=== PATIENT | female | born 1995 | race American Indian/Alaskan Native ===

== ENCOUNTER 2021-05-03 13:34 | Emergency (ER) | payer SELFPAY ==
[2021-05-03 14:09] VITALS: BP 114/73
--- NOTE | 2021-05-03 14:34 | Emergency Department Report ---
ED General Adult HPI - General Chief complaint: Sore Throat Stated complaint: SWOLLEN LYMPH NODES/INFECTION Time Seen by Provider: 05/03/21 14:13 Source: patient Mode of arrival: Ambulatory Limitations: No Limitations - History of Present Illness Initial comments: 25-year-old -L[place] female patient presents with complaints of sore throat starting yesterday and rash and pain to her new tattoo x2 days. Patient states she has a history of recurrent strep pharyngitis and that her sore throat feels similar. She rates her pain as a 9/10 in severity and states it mildly improved with ibuprofen at home. She denies any chest pain, shortness of breath, cough, or fever/chills/sweats. Patient states she has been applying Aquaphor to her new tattoo and wrapping it and plastic wrap. No known drug allergies per patient. She denies any joint pain, numbness/tingling, or difficulty moving her arm or hand. - Related Data Previous Rx's Medication Instructions Recorded Last Taken Type Fluconazole [Diflucan TAB] 150 mg PO QDAY PRN #1 tablet 05/03/21 Unknown Rx Ibuprofen [Motrin 800 MG tab] 800 mg PO Q8HR PRN #20 tablet 05/03/21 Unknown Rx Triamcinolone Acetonide 15 gm TP TID PRN 7 Days #1 tube 05/03/21 Unknown Rx cephALEXin [Keflex] 500 mg PO Q8HR 10 Days #30 cap 05/03/21 Unknown Rx predniSONE [Deltasone] 20 mg PO BID 3 Days #6 tab 05/03/21 Unknown Rx Allergies Allergy/AdvReac Type Severity Reaction Status Date / Time No Known Allergies Allergy Verified 05/03/21 14:10 ED Review of Systems ROS: Stated complaint: SWOLLEN LYMPH NODES/INFECTION Other details as noted in HPI Constitutional: see HPI Respiratory: see HPI Cardiovascular: as per HPI Skin: as per HPI Neurological: as per HPI ED Past Medical Hx - Past Medical History Previous Medical History?: No - Surgical History Past Surgical History?: No - Medications Home Medications: Home Medications Medication Instructions Recorded Confirmed Last Taken Type Fluconazole [Diflucan TAB] 150 mg PO QDAY PRN #1 tablet 05/03/21 Unknown Rx Ibuprofen [Motrin 800 MG tab] 800 mg PO Q8HR PRN #20 tablet 05/03/21 Unknown Rx Triamcinolone Acetonide 15 gm TP TID PRN 7 Days #1 tube 05/03/21 Unknown Rx cephALEXin [Keflex] 500 mg PO Q8HR 10 Days #30 cap 05/03/21 Unknown Rx predniSONE [Deltasone] 20 mg PO BID 3 Days #6 tab 05/03/21 Unknown Rx ED Physical Exam - General Limitations: No Limitations General appearance: alert, in no apparent distress - Head Head exam: Present: atraumatic, normocephalic - Eye Eye exam: Present: normal appearance. Absent: scleral icterus - Expanded ENT Exam Expanded Mouth exam: Absent: drooling, trismus, muffled voice Throat exam: Positive: tonsillar erythema (Bilateral), tonsillomegaly (Mild bilateral), tonsillar exudate (Bilateral), other (Uvula is mildly swollen and erythematous, uvula is midline). Negative: R peritonsillar mass, L peritonsillar mass - Neck Neck exam: Present: normal inspection - Respiratory Respiratory exam: Absent: respiratory distress - Cardiovascular Cardiovascular Exam: Present: regular rate, normal rhythm - Neurological Exam Neurological exam: Present: alert, oriented X3 - Psychiatric Psychiatric exam: Present: normal affect, normal mood - Skin Skin exam: Present: warm, dry, intact, rash (Erythemic rash noted to left inner lower upper arm with scattered small pustules and mild tenderness to palpation and swelling; patient has full range of motion of the elbow and shoulder) ED Course Vital Signs 05/03/21 14:06 Temperature 97.9 F Pulse Rate 95 H Respiratory 16 Rate Blood Pressure 114/73 O2 Sat by Pulse 100 Oximetry ED Medical Decision Making - Medical Decision Making 25-year-old -L[place] female patient presents with complaints of sore throat starting yesterday and rash and pain to her new tattoo x2 days. Patient states she has a history of recurrent strep pharyngitis and that her sore throat feels similar. She rates her pain as a 9/10 in severity and states it mildly improved with ibuprofen at home. She denies any chest pain, shortness of breath, cough, or fever/chills/sweats. Patient states she has been applying Aquaphor to her new tattoo and wrapping it and plastic wrap. No known drug allergies per patient. She denies any joint pain, numbness/tingling, or difficulty moving her arm or hand. Rash appears to be cellulitis versus allergic dermatitis. Will treat with keflex which will also cover strep pharyngitis. Patient also given prednisone and informed to follow-up with primary care provider in 3 to 5 days. She is otherwise well-appearing, her vitals are within normal limits, she is stable for discharge home. Strict return precautions were discussed in detail with patient who verbalizes understanding Critical care attestation.: If time is entered above; I have spent that time in minutes in the direct care of this critically ill patient, excluding procedure time. ED Disposition Clinical Impression: Acute pharyngitis, Rash Disposition: HOME / SELF CARE / HOMELESS Is pt being admited?: No Condition: Stable Instructions: Strep Throat, Adult, [id number], Cellulitis, Adult, [id number], Contact Dermatitis, [id number] Additional Instructions: Please purchase [id number] loratadine (Claritin) and use once daily as needed for rash or itching Prescriptions: predniSONE [Deltasone] 20 mg PO BID 3 Days #6 tab Fluconazole [Diflucan TAB] 150 mg PO QDAY PRN #1 tablet PRN Reason: yeast infection cephALEXin [Keflex] 500 mg PO Q8HR 10 Days #30 cap Ibuprofen [Motrin 800 MG tab] 800 mg PO Q8HR PRN #20 tablet PRN Reason: pain Triamcinolone Acetonide 15 gm TP TID PRN 7 Days #1 tube PRN Reason: Itching Referrals: PRIMARY CARE, [Referring] - 3-5 Days [facility] [Provider Group] - 3-5 Days Forms: Work/School Release Form(ED)
[2021-05-03] MEDS ORDERED: predniSONE 20 MG TAB PO ONE (14:42)
== END 2021-05-03 15:29 | disposition home or self-care (01) ==
LOC: ED 13:34
DX: J02.9 Acute pharyngitis, unspecified (principal); L81.8 Other specified disorders of pigmentation
CPT/HCPCS: 99282